=== PATIENT | female | born 1995 | race Caucasian/White ===

== ENCOUNTER 2025-04-27 19:54 | Emergency (ER) | payer OTHER ==
[~2025-04-27] VITALS: Ht 152.4 cm; Wt 93.6 kg
[2025-04-28 03:14] LABS: BASO # 0.0 10^3/uL (0.0-0.2); BASO % 0.3 % (0.0-1.0); EOS # 0.0 10^3/uL (0.0-0.5); EOS % 0.1 % (0.0-3.0); LYMPH # 3.7 10^3/uL (1.5-5.0); LYMPH % 31.8 % (24.0-44.0); MONO # 0.7 10^3/uL (0.0-0.8); MONO % 5.6 % (2.0-8.0); NEUTROPHILS # 7.3 10^3/uL (1.5-8.5); NEUTROPHILS % 61.9 % (36.0-66.0); PLATELET COUNT, AUTOMATED 339 10^3/uL (150-450)
[2025-04-28 03:37] LABS: CALCIUM LEVEL 9.4 MG/DL (8.5-10.1); CARBON DIOXIDE LEVEL 26 MMOL/L (20-31); CHLORIDE LEVEL 104 MMOL/L (98-107); CREATININE FOR GFR 0.69 MG/DL (0.55-1.30); GLOMERULAR FILTRATION RATE > 90.0 (>60); MAGNESIUM LEVEL 1.9 MG/DL (1.8-2.4); POTASSIUM SERUM 4.1 MMOL/L (3.5-5.1); SODIUM LEVEL 142 MMOL/L (136-145)
[2025-04-28] MEDS ORDERED: ISOVUE-370 76% 100 ML VIAL As Ordered ONE (03:56)
[2025-04-28 03:59] LABS: HCG, SERUM QUALITATIVE NEGATIVE (NEGATIVE)
[2025-04-28 04:30] VITALS: BP 130/91; TEMP 98.3; O2SAT 98
== END 2025-04-28 05:19 | disposition home or self-care (01) ==
LOC: M ED 19:54
DX: R22.1 Localized swelling, mass and lump, neck (principal)
CPT/HCPCS: 36415; 70480; 70491; 80048; 83735; 84703; 85025; 99284; Q9967